=== PATIENT | male | born 1970 | race Hispanic/Latino ===

== ENCOUNTER → 2019-04-14 | Outpatient (CLI) | payer OTHER ==
--- NOTE | 2019-04-14 13:40 | Diagnostic Imaging Report ---
EXAMINATION: CERVICAL SPINE 4 OR 5 VIEWS, SP LUMBAR, COMPLETE MIN 4VW INDICATION: Neck pain, back pain COMPARISON: None FINDINGS: Cervical spine: AP, lateral, oblique and odontoid images of the cervical spine were obtained. No acute fracture or dislocation. Mild reversal of the normal cervical lordosis. Mild multilevel degenerative changes with disc space narrowing and small osteophyte formation, most notably at C5-6 and C6-7. A prominent osteophyte projects over the foramen at C6-7 on the right. Prevertebral soft tissues are normal in thickness. Lumbar spine: AP, lateral and oblique images of the lumbar spine were obtained. No acute fracture or dislocation. Vertebral body heights are well-maintained. No evidence of spondylolysis. Alignment appears anatomic. Mild multilevel degenerative changes with disc space narrowing and small osteophyte formation. Nonobstructive bowel gas pattern. IMPRESSION: No acute osseous injury of the cervical or lumbar spine. Multilevel degenerative changes as above. Prominent osteophyte projects over the C6-7 foramen on the right. Signed by: Saskia Chow MD on 04/14/2019 1:37 PM
== END ==
LOC: RAD 12:30
PROVIDERS: ATTEND Chiropractor
DX: S34.21XA Injury of nerve root of lumbar spine, initial encounter (principal); S14.2XXA Injury of nerve root of cervical spine, initial encounter
CPT/HCPCS: 72050; 72110

== ENCOUNTER 2022-05-07 18:47 | Inpatient (IN) | payer OTHER ==
[~2022-05-07] VITALS: Ht 177.8 cm; Wt 86.2 kg
[2022-05-07 19:42] LABS: BASOPHILS # (AUTO) 0.1 (0.0-0.1); BASOPHILS % 0.8 % (0.0-1.0); EOSINOPHILS # (AUTO) 0.2 (0.0-0.4); EOSINOPHILS % 2.1 % (0.0-6.0); HEMATOCRIT 44.5 % (38.2-49.6); HEMOGLOBIN 14.5 g/dL (14.0-18.0); LYMPHOCYTES # (AUTO) 2.1 (1.0-3.2); LYMPHOCYTES % 19.6 % (18.0-39.1); MEAN CORPUSCULAR HEMOGLOBIN 30.8 pg (28-32); MEAN CORPUSCULAR HGB CONC 32.6 g/dL (31-35); MEAN CORPUSCULAR VOLUME 94.5 fL (81-99); MONOCYTES % 9.3 % (4.4-11.3); NEUTROPHILS # (AUTO) 7.1 (2.1-6.9); NEUTROPHILS % 67.7 % (38.7-80.0); PLATELET COUNT 396 x10e3/uL (140-360); RED BLOOD COUNT 4.71 x10e6/uL (4.3-5.7); RED CELL DISTRIBUTION WIDTH 12.6 % (11.7-14.4)
[2022-05-07] MEDS ORDERED: ONDANSETRON HCL INJ 2MG/ML 2ML 2 MG/ML VIAL IV STA (19:42)
[2022-05-07] MEDS ORDERED: Morphine 4mg INJECTION 4 MG/ML INJ IV ONE (19:45)
[2022-05-07 19:59] LABS: ALANINE AMINOTRANSFERASE 43 IU/L (0-55); ALBUMIN 3.6 g/dL (3.5-5.0); ALKALINE PHOSPHATASE 52 IU/L (40-150); ANION GAP 14.2 mmol/L (8-16); BLOOD UREA NITROGEN 6 mg/dL (7-26); BUN/CREATININE RATIO 8 (6-25); CALCIUM 9.1 mg/dL (8.4-10.2); CARBON DIOXIDE 26 mmol/L (22-29); CHLORIDE 105 mmol/L (98-107); CREATINE KINASE 251 IU/L (30-200); GLUCOSE 155 mg/dL (74-118); POTASSIUM 4.2 mmol/L (3.5-5.1); SODIUM 141 mmol/L (136-145)
[2022-05-07] MEDS ORDERED: ONDANSETRON HCL INJ 2MG/ML 2ML 2 MG/ML VIAL ONE (20:04)
[2022-05-07] MEDS ORDERED: Morphine 4mg INJECTION 4 MG/ML INJ ONE (20:05)
[2022-05-07] MEDS ORDERED: IOPAMIDOL 370 MG/ML 100 ML INFUS..BTL INJ ONE (20:37)
[2022-05-07] MEDS: SODIUM CHLORIDE 0.9% 1000ML 1,000 ML IV SCH (22:15)
[2022-05-08] VITALS (10 sets, daily range): BP systolic 117–155; BP diastolic 70–96
[2022-05-08] MEDS: SODIUM CHLORIDE 0.9% 1000ML 1,000 ML IV SCH ×3 (00:51→22:50)
[2022-05-08] MEDS ORDERED: DYMISTA NASAL S23 GM INH (03:20)
[2022-05-08] MEDS ORDERED: OMEPRAZOLE40 MG PO (03:20)
[2022-05-08] MEDS ORDERED: NEURONTIN300 MG PO (03:20)
[2022-05-08] MEDS ORDERED: SERTRALINE HCL50 MG PO (03:20)
[2022-05-08] MEDS ORDERED: TRAZODONE HCL50 MG PO (03:20)
[2022-05-08] MEDS ORDERED: ALLEGRA ALLERGY60 MG PO (03:20)
[2022-05-08 07:55] LABS: BASOPHILS % 0.4 % (0.0-1.0); EOSINOPHILS # (AUTO) 0.3 (0.0-0.4); EOSINOPHILS % 3.5 % (0.0-6.0); LYMPHOCYTES # (AUTO) 2.4 (1.0-3.2); LYMPHOCYTES % 25.4 % (18.0-39.1); MEAN CORPUSCULAR HEMOGLOBIN 31.1 pg (28-32); MEAN CORPUSCULAR HGB CONC 33.3 g/dL (31-35); MEAN CORPUSCULAR VOLUME 93.3 fL (81-99); MONOCYTES # (AUTO) 0.9 (0.2-0.8); MONOCYTES % 9.7 % (4.4-11.3); NEUTROPHILS # (AUTO) 5.7 (2.1-6.9); NEUTROPHILS % 60.4 % (38.7-80.0); PLATELET COUNT 384 x10e3/uL (140-360); RED CELL DISTRIBUTION WIDTH 12.7 % (11.7-14.4)
[2022-05-08 08:15] LABS: ALBUMIN 3.4 g/dL (3.5-5.0); ALBUMIN/GLOBULIN RATIO 1.1 (0.8-2.0); ANION GAP 13.8 mmol/L (8-16); CALCIUM 8.7 mg/dL (8.4-10.2); CREATININE, SERUM 0.8 mg/dL (0.72-1.25); POTASSIUM 3.8 mmol/L (3.5-5.1)
[2022-05-08] MEDS: ONDANSETRON HCL INJ 2MG/ML 2ML 2 MG/ML VIAL IV PRN ×3 (08:20→17:48)
[2022-05-08] MEDS: Morphine 4mg INJECTION 4 MG/ML INJ IV PRN ×3 (08:20→17:48)
[2022-05-08] MEDS: DIPHENHYDRAMINE HCL 25 MG CAP PO PRN (17:45)
[2022-05-08] MEDS: TRAZODONE HCL 50 MG TAB PO SCH (20:44)
[2022-05-09] VITALS: BP 117/76
[2022-05-09] MEDS: DIPHENHYDRAMINE HCL 25 MG CAP PO PRN ×2 (00:23→06:45)
[2022-05-09 04:00] VITALS: BP 102/63
[2022-05-09] MEDS: SODIUM CHLORIDE 0.9% 1000ML 1,000 ML IV SCH (06:04)
[2022-05-09 07:22] LABS: BASOPHILS % 0.3 % (0.0-1.0); EOSINOPHILS # (AUTO) 0.5 (0.0-0.4); EOSINOPHILS % 3.8 % (0.0-6.0); HEMATOCRIT 45.5 % (38.2-49.6); HEMOGLOBIN 15.1 g/dL (14.0-18.0); LYMPHOCYTES # (AUTO) 1.7 (1.0-3.2); MEAN CORPUSCULAR HGB CONC 33.2 g/dL (31-35); MEAN CORPUSCULAR VOLUME 93.4 fL (81-99); MONOCYTES # (AUTO) 0.9 (0.2-0.8); NEUTROPHILS # (AUTO) 10.9 (2.1-6.9); NEUTROPHILS % 77.3 % (38.7-80.0); PLATELET COUNT 394 x10e3/uL (140-360); RED BLOOD COUNT 4.87 x10e6/uL (4.3-5.7); RED CELL DISTRIBUTION WIDTH 12.6 % (11.7-14.4)
[2022-05-09 07:38] LABS: ALBUMIN/GLOBULIN RATIO 1.1 (0.8-2.0); ANION GAP 11.7 mmol/L (8-16); CALCIUM 8.3 mg/dL (8.4-10.2); CREATININE, SERUM 0.96 mg/dL (0.72-1.25); POTASSIUM 3.7 mmol/L (3.5-5.1)
[2022-05-09 08:00] VITALS: BP 111/71
[2022-05-09 11:23] VITALS: BP 123/77
[2022-05-09] MEDS: CHOLESTYRAMINE 4 GM PACKET PO SCH ×3 (13:00→21:00)
[2022-05-09 15:56] VITALS: BP 135/77
[2022-05-09] MEDS: SERTRALINE HCL 50 MG TAB PO SCH (17:26)
[2022-05-09 20:00] VITALS: BP 131/81
[2022-05-09] MEDS: TRAZODONE HCL 50 MG TAB PO SCH (22:32)
[2022-05-10] VITALS: BP 113/69
[2022-05-10 04:00] VITALS: BP 113/68
[2022-05-10 05:17] LABS: BASOPHILS # (AUTO) 0.1 (0.0-0.1); BASOPHILS % 0.4 % (0.0-1.0); EOSINOPHILS # (AUTO) 0.8 (0.0-0.4); EOSINOPHILS % 5.9 % (0.0-6.0); HEMATOCRIT 41.2 % (38.2-49.6); HEMOGLOBIN 13.7 g/dL (14.0-18.0); LYMPHOCYTES # (AUTO) 2.1 (1.0-3.2); LYMPHOCYTES % 16.3 % (18.0-39.1); MEAN CORPUSCULAR HEMOGLOBIN 30.7 pg (28-32); MEAN CORPUSCULAR HGB CONC 33.3 g/dL (31-35); MEAN CORPUSCULAR VOLUME 92.4 fL (81-99); MONOCYTES % 7.9 % (4.4-11.3); PLATELET COUNT 399 x10e3/uL (140-360); RED BLOOD COUNT 4.46 x10e6/uL (4.3-5.7); RED CELL DISTRIBUTION WIDTH 12.4 % (11.7-14.4)
[2022-05-10 08:00] VITALS: BP 113/65
[2022-05-10 08:45] VITALS: BP 113/65
[2022-05-10] MEDS ORDERED: PANTOPRAZOLE SOD 40 MG TABEC PO SCH (09:00)
[2022-05-10] MEDS: CHOLESTYRAMINE 4 GM PACKET PO SCH ×2 (09:34→12:41)
[2022-05-10] MEDS: SERTRALINE HCL 50 MG TAB PO SCH (09:34)
[2022-05-10] MEDS ORDERED: ACIDOPHILUS1 EAC1 PO (11:56)
[2022-05-10] MEDS ORDERED: METRONIDAZOLE500 MG PO (11:56)
[2022-05-10] MEDS ORDERED: LEVOFLOXACIN500 MG PO (11:56)
[2022-05-10 12:53] VITALS: BP 119/83
== END 2022-05-10 15:54 | disposition home or self-care (01) | DRG 395 ==
LOC: ER 18:55 → ERHOLD 21:52 → MED/SURG 05-08 00:12
PROVIDERS: ADMIT Internal Medicine; ATTEND Internal Medicine
DX: K62.89 Other specified diseases of anus and rectum (principal); F41.9 Anxiety disorder, unspecified; Z20.822 Contact with and (suspected) exposure to COVID-19; K38.1 Appendicular concretions; K76.0 Fatty (change of) liver, not elsewhere classified; F32.A Depression, unspecified; R19.7 Diarrhea, unspecified
CPT/HCPCS: 36415; 74177; 80053; 82550; 82553; 83690; 84484; 85025; 93005; 96361; 99285; J2270; J2405; J2543; J7030; Q9967